=== PATIENT | female | born 1955 | race African-American/Black ===

== ENCOUNTER 2019-11-01 16:46 | Emergency (ER) | payer MEDICAID, OTHER ==
[~2019-11-01] VITALS: Ht 160 cm; Wt 77.5 kg
[~2019-11-01 16:46] MED LIST: LOSA1TAB40 PO
[2019-11-01 17:14] LABS: BASOPHILS % 0.6 % (0.0-2.0); EOSINOPHILS % 0.6 % (0.0-5.0); HEMATOCRIT. 45.8 % (36.0-48.0); LYMPHOCYTES % 17.7 % (20.0-50.0); MEAN CORPUSCULAR HEMOGLOBIN 31.8 pg (28.0-32.0); MEAN CORPUSCULAR VOLUME 97.4 fL (81.0-99.0); MONOCYTES % 8.4 % (2.0-8.0); NEUTROPHILS % 72.7 % (40.0-76.0); PLATELET 196 x1000/uL (130-400); RED BLOOD CELL COUNT 4.71 mill/uL (4.2-5.4); RED CELL DISTRIBUTION WIDTH 14.7 % (11.6-14.6)
[2019-11-01 17:20] LABS: CHLORIDE 108 mEq/L (98-107)
[2019-11-01 17:21] LABS: INR 1.5; PROTHROMBIN TIME 15.8 sec (9.6-11.0)
[2019-11-01 17:25] LABS: ETHANOL BLOOD < 10 mg/dL
[2019-11-01 17:28] LABS: LDL CHOLESTEROL 117 mg/dL (5-100)
[2019-11-01 19:19] LABS: CLARITY URINE CLEAR (CLEAR); COLOR URINE YELLOW (YELLOW); KETONES URINE TRACE (NEGATIVE); LEUKOCYTE ESTERASE URINE 1+ (NEGATIVE); NITRITE URINE NEGATIVE (NEGATIVE); OCCULT BLOOD URINE TRACE (NEGATIVE); PROTEIN URINE NEGATIVE (NEGATIVE); SPECIFIC GRAVITY URINE 1.036 (1.005-1.030); UROBILINOGEN URINE 0.2 E.U./dL (0.2-1.0)
[2019-11-01 19:29] LABS: *AMPHETAMINES SCREEN URINE NEGATIVE (NEGATIVE); *BARBITURATES SCREEN URINE NEGATIVE (NEGATIVE); *BENZODIAZEPINES SCREEN URINE NEGATIVE (NEGATIVE); *COCAINE SCREEN URINE NEGATIVE (NEGATIVE); METHADONE URINE SCREEN NEGATIVE (NEGATIVE); OPIATES URINE SCREEN NEGATIVE (NEGATIVE)
[2019-11-01 19:30] LABS: CANNABINOID URINE SCREEN NEGATIVE (NEGATIVE); PHENCYCLIDINE URINE SCREEN NEGATIVE (NEGATIVE)
[2019-11-01 21:00] VITALS: BP 165/101
[2019-11-01] MEDS ORDERED: IOHEXOL-350 100 ML BOTTLE ONE (21:36)
== END 2019-11-02 01:05 | disposition home or self-care (01) ==
LOC: ER 16:46 → CANBEDREQ 11-02 01:54
DX: I63.89 Other cerebral infarction (principal); R29.810 Facial weakness; R53.1 Weakness
CPT/HCPCS: 36415; 70450; 70496; 71045; 80053; 80305; 80320; 81003; 82962; 83721; 84484; 85025; 85610; 93005; 99285; Q9967; G0480